=== PATIENT | male | born 1965 | race Caucasian/White ===

== ENCOUNTER 2018-08-20 20:19 | Emergency (ER) | payer MEDICARE, MEDICAID ==
[~2018-08-20] VITALS: Ht 175.3 cm; Wt 54.3 kg
[2018-08-20 20:21] VITALS: Ht 175.3 cm; Wt 54.3 kg
[2018-08-20] MEDS ORDERED: HYDROCODONE/APAP (10/325) TAB PO ONE (21:00)
[2018-08-20] MEDS ORDERED: CEPHALEXIN 500 MG CAP PO ONE (21:00)
[2018-08-20] MEDS ORDERED: TRIMETHOPRIM/SULFAMETHOX (DS) TAB PO ONE (21:00)
[2018-08-20] MEDS ORDERED: SULF1TAB31 PO (21:22)
[2018-08-20] MEDS ORDERED: CEPH-443 PO (21:22)
[2018-08-20] MEDS ORDERED: IBUP-1542 PO (21:22)
[2018-08-20 21:28] VITALS: BP 141/83; PULSE 86; RESP 18
--- NOTE | 2018-08-20 21:54 | ERD ---
ER Documentation Chief Complaint Chief Complaint LEFT LEG REDNESS, SWELLING X1DAY; HX OF DM HPI Patient is a 52-year-old male with chronic kidney disease, diabetes, and vasculopathy who presents with left leg redness. He has a history of surgery with plates and screws to this leg. His redness of the leg started today. He feels a burning type pain. He denies fevers. He has had no treatment as of yet. Upon review of old medical records this is the patient's first visit to the emergency department. He does have a primary doctor an appointment on Friday. ROS All systems reviewed and are negative except as per history of present illness. Medications Home Meds Active Scripts Ibuprofen* (Motrin*) 600 Mg Tab, 600 MG PO Q6H PRN for PAIN AND OR ELEVATED TEMP, #30 TAB Prov:TAMIR VASQUEZ MD 08/20/18 Cephalexin* (Keflex*) 500 Mg Capsule, 500 MG PO QID for 7 Days, CAP Prov:TAMIR VASQUEZ MD 08/20/18 Sulfamethoxazole/Trimethoprim* (Bactrim Ds* Tablet) 1 Each Tablet, 1 TAB PO BID, #14 TAB Prov:TAMIR VASQUEZ MD 08/20/18 Allergies Allergies: Coded Allergies: No Known Allergy (Unverified , 08/20/18) PMhx/Soc History of Surgery: Yes (left lower leg ORIF 03/12/2016) Anesthesia Reaction: No Hx Miscellaneous Medical Probl: Yes (stage 4 kidney ds, legally blind) Hx Alcohol Use: No Hx Substance Use: No Hx Tobacco Use: Yes Smoking Status: Current every day smoker FmHx Family History: diabetes Physical Exam Vitals Vital Signs Date Temp Pulse Resp B/P (MAP) Pulse Ox O2 O2 Flow FiO2 Time Delivery Rate 08/20/18 86 18 141/83 98 Room Air 21:28 (102) 08/20/18 97.9 99 18 146/70 99 20:21 (95) Physical Exam Const: No acute distress Head: Atraumatic Eyes: Normal Conjunctiva ENT: Normal External Ears, Nose and Mouth. Neck: Full range of motion. No meningismus. Resp: Clear to auscultation bilaterally Cardio: Regular rate and rhythm, no murmurs Abd: Soft, non tender, non distended. Normal bowel sounds Skin: Out erythema to the left anterior barrett without crepitus or abscess formation Back: No midline or flank tenderness Ext: No cyanosis, or edema Neur: Awake and alert Psych: Normal Mood and Affect Results 24 hrs Laboratory Tests Test 08/20/18 20:34 Bedside Glucose 186 mg/dL Current Medications Medications Dose Sig/Timoteo Start Time Status Last (Trade) Ordered Route PRN Stop Time Admin Dose Reason Admin Cephalexin 500 mg ONCE ONCE 08/20/18 DC 08/20/18 (Keflex) PO 21:00 20:46 08/20/18 21:01 1 tab ONCE ONCE 08/20/18 DC 08/20/18 Trimethoprim/ PO 21:00 20:46 08/20/18 21:01 Sulfamethoxaz ole (Bactrim (Ds)) 1 tab ONCE ONCE 08/20/18 DC 08/20/18 Acetaminophen PO 21:00 20:46 / 08/20/18 21:01 Hydrocodone Bitart ([place] ()) Procedures/MDM X-ray of the left tibia and fibula read by radiology. Patient is a 52-year-old male with diabetes who presents with cellulitis to the left anterior barrett. There is no sign of abscess at this time. There is no crepitus and I doubt necrotizing fasciitis. Vital signs are normal. I doubt sepsis. The patient will be discharged with Bactrim and Keflex and ibuprofen. The first doses of Bactrim and Keflex were given in the emergency department. I believe the patient should follow-up within 48 hours for wound check and can return for any worsening symptoms. Departure Diagnosis: Primary Impression: Cellulitis Site of cellulitis: extremity Site of cellulitis of extremity: lower extremity Laterality: left Qualified Codes: L03.116 - Cellulitis of left lower limb Condition: Fair Patient Instructions: Cellulitis Referrals: Your doctor Additional Instructions: Call your primary care doctor TOMORROW for an appointment during the next 2-3 days.See the doctor sooner or return here if your condition worsens before your appointment time. TAMIR VASQUEZ MD Aug 20, 2018 21:54
== END 2018-08-20 21:30 | disposition home or self-care (01) ==
LOC: E/R 20:19
DX: L03.116 Cellulitis of left lower limb (principal); E11.22 Type 2 diabetes mellitus with diabetic chronic kidney disease; N18.4 Chronic kidney disease, stage 4 (severe); F17.210 Nicotine dependence, cigarettes, uncomplicated
CPT/HCPCS: 73590; 82962